=== PATIENT | female | born 1960 | race Caucasian/White ===

== ENCOUNTER 2018-09-30 09:00 | Emergency (ER) | payer OTHER ==
--- OUTSIDE RECORDS SUMMARY | 2018-09-30 09:03 | XMS REPORT | Clinical Summary ---
:1960 Author Organization [facility] Address [address] [place] [address] Care Team Providers Name Role Phone Dominique Negro Primary Care Provider Allergies Active Allergy Reactions Severity Noted Date Comments Glucosamine 06/22/2014 Unknown- discovered on allergy testing Iodine 02/18/2018 Iodine And Iodide Containing 06/22/2014 Unknown- found on allergy Products testing Latex 06/22/2014 Turns lips purple Shellfish Containing 06/22/2014 Unknown- discovered on Products allergy testing Medications Medication Sig Dispensed Refills Start Date End Date Status metFORMIN Take 500 mg by 0 Active (GLUMETZA) 500 MG mouth 2 (two) (MOD) 24 hr tablet times daily with breakfast and dinner. fexofenadine Take 180 mg by 0 Active (PETER) 180 MG mouth daily. tablet cholecalciferol, Take 5,000 0 Active vitamin D3, 5,000 Units by mouth unit Tab daily. esomeprazole Take 40 mg by 0 Active (NEXIUM) 40 MG mouth daily. capsule thyroid, pork, Take 30 mg by 0 Active (ARMOUR THYROID) mouth daily. 30 mg Tab celecoxib Take 100 mg by 0 Active (CELEBREX) 100 MG mouth every 12 capsule (twelve) hours as needed for Pain. ALPRAZolam (XANAX) Take 0.25 mg by 0 Active 0.25 MG tablet mouth every night as needed for Anxiety. azelastine 1 spray by 0 Active (ASTELIN) 137 mcg Nasal route 2 (0.1 %) nasal (two) times spray daily Use in each nostril as directed . rosuvastatin Take 10 mg by 0 Active (CRESTOR) 10 MG mouth daily. tablet losartan (COZAAR) Take 25 mg by 0 Active 25 MG tablet mouth daily. THYROID ORAL Take 0.5 g by 0 09/20/2018 Discontinued mouth daily. Nature thyroid omeprazole Take 20 mg by 0 09/20/2018 Discontinued (PRILOSEC OTC) 20 mouth daily. MG tablet potassium 99 mg Take by mouth 0 09/20/2018 Discontinued Tab daily. sulfamethoxazole-t Take 1 tablet 0 09/20/2018 Discontinued rimethoprim by mouth 2 (BACTRIM DS) (two) times 800-160 mg per daily. tablet promethazine Take 1 tablet 10 tablet 0 06/29/2014 09/20/2018 Discontinued (PHENERGAN) 25 MG (25 mg total) tablet by mouth every 4 (four) hours as needed for Nausea. Active Problems Problem Noted Date Gallbladder disease 06/29/2014 Encounters Date Type Specialty Care Team Description 09/21/2018 Surgery Gastroenterology Hugo Meyers REMOVAL,24HR PH MD Claudio PROBE 09/21/2018 Hospital Encounter Gastroenterology Hugo Meyers MD 09/20/2018 Surgery Gastroenterology Hugo Meyers TEST,MONITORING 24 KMD Nathan HR PH 09/20/2018 Anesthesia Event Gastroenterology Lazaro Barbosa MD 09/20/2018 Hospital Encounter Gastroenterology Hugo Meyers MD 09/02/2018 Hospital Encounter Radiology Virgadamo, Chronic intractable headache, unspecified headache type; MD Devaughn Neck pain 08/26/2018 Hospital Encounter Cardiology Virgadamo, Chronic intractable headache, unspecified headache type; MD Devaughn Neck pain 08/24/2018 Outside Orders Central Scheduling Virgadamo, Chronic intractable headache, unspecified headache type (Primary Dx); MD Devaughn Neck pain after 09/29/2017 Social History Tobacco Use Types Packs/Day Years Used Date Former Smoker 1 3 Comments: quit 1983 Alcohol Use Drinks/Week oz/Week Comments No Sex Assigned at Date Recorded Not on file Job Start Date Occupation Industry Not on file Not on file Not on file Travel History Travel Start Travel End No recent travel history available. 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 Plan of Treatment Not on file Procedures Procedure Name Priority Date/Time Associated Diagnosis Comments MOTILITY 09/20/2018 12:00 PM [employer] WORK[employer] Esophageal dyskinesia Chronic cough Gastroesophageal reflux disease, esophagitis presence not specified Pre-op examination Special Needs (OFF MEDICATION) TEST,MONITORING 24 HR PH 09/20/2018 12:00 PM Esophageal dyskinesia [employer] Chronic cough Gastroesophageal reflux disease, esophagitis presence not specified Pre-op examination Special Needs (OFF MEDICATION) MR SPINE CERVICAL Routine 09/02/2018 1:07 PM Chronic intractable Results for this WITHOUT IV CONTRAST CDT headache, procedure are in unspecified headache the results type section. Neck pain CAROTID DOPPLER Routine 08/26/2018 10:00 AM Chronic intractable Results for this BILATERAL CDT headache, procedure are in unspecified headache the results type section. Neck pain after 09/29/2017 Results MR spine cervical without IV contrast (09/02/2018 1:07 PM CDT) Narrative Performed At FINAL REPORT [employer] [facility] MR cervical spine without contrast INDICATION: Neck pain, headache TECHNIQUE: MRI of the cervical spine utilizing the following sequences: Sagittal T1, T2, STIR; axial T1 and T2 COMPARISON: None available. FINDINGS: There is straightening of the cervical lordosis. Vertebral height and alignment are otherwise maintained. There are mild degenerative endplate changes and C1-2 arthropathy. There is questionable faintly elevated cord signal centered at C5-6, likely of myelopathic etiology. The spinal canal is borderline congenitally narrow. C2-3: Left asymmetric facet arthropathy with mild left foraminal stenosis. No significant canal or right foraminal stenosis. C3-4: Disc bulge, central disc protrusion indenting the ventral cord, and left greater than right facet arthropathy. Mild canal stenosis and minimal left foraminal stenosis. No significant right foraminal stenosis. C4-5: Disc bulge, central disc protrusion indenting the ventral cord, uncovertebral osteophytes, and facet arthropathy. Mild canal stenosis. Mild left greater than right foraminal stenosis. C5-6: Disc bulge, broad based central disc protrusion/extrusion with ventral cord impingement, endplate and uncovertebral osteophytes, and facet arthropathy. Moderate canal stenosis. Moderate to severe bilateral foraminal stenosis. C6-7: Disc bulge, broad based left paracentral disc protrusion, endplate and uncovertebral osteophytes, and left asymmetric facet arthropathy. Mild canal stenosis. Moderate left and mild right foraminal stenosis. C7-T1: No significant canal or foraminal stenosis. A T2 hyperintense 1 cm nodule in the midline nasopharynx likely reflects a Tornwaldt or mucus retention cyst. There is mild chronic sinus mucosal thickening. IMPRESSION: 1. Broad based central disc herniation at C5-6, and smaller disc protrusions at C3-4, C4-5, and C6-7. Additional degenerative changes contribute to spinal canal stenosis, moderate at C5-6 and mild at C3-4, C4-5, and C6-7. 2. Moderate to severe bilateral C5-6 foraminal stenoses, with other lesser foraminal stenoses as discussed. 3. Questionable faintly elevated cord signal at C5-6, probably of myelopathic etiology. Neurologic correlation is requested. Signed: Betsy Taylor MD Report Verified Date/Time:09/02/2018 14:47:15 Reading Location: [facility] Radiology Reading Room Procedure Note Interface, External Ris In - 09/02/2018 2:49 PM CDT FINAL REPORT MR cervical spine without contrast INDICATION: Neck pain, headache TECHNIQUE: MRI of the cervical spine utilizing the following sequences: Sagittal T1, T2, STIR; axial T1 and T2 COMPARISON: None available. FINDINGS: There is straightening of the cervical lordosis. Vertebral height and alignment are otherwise maintained. There are mild degenerative endplate changes and C1-2 arthropathy. There is questionable faintly elevated cord signal centered at C5-6, likely of myelopathic etiology. The spinal canal is borderline congenitally narrow. C2-3: Left asymmetric facet arthropathy with mild left foraminal stenosis. No significant canal or right foraminal stenosis. C3-4: Disc bulge, central disc protrusion indenting the ventral cord, and left greater than right facet arthropathy. Mild canal stenosis and minimal left foraminal stenosis. No significant right foraminal stenosis. C4-5: Disc bulge, central disc protrusion indenting the ventral cord, uncovertebral osteophytes, and facet arthropathy. Mild canal stenosis. Mild left greater than right foraminal stenosis. C5-6: Disc bulge, broad based central disc protrusion/extrusion with ventral cord impingement, endplate and uncovertebral osteophytes, and facet arthropathy. Moderate canal stenosis. Moderate to severe bilateral foraminal stenosis. C6-7: Disc bulge, broad based left paracentral disc protrusion, endplate and uncovertebral osteophytes, and left asymmetric facet arthropathy. Mild canal stenosis. Moderate left and mild right foraminal stenosis. C7-T1: No significant canal or foraminal stenosis. A T2 hyperintense 1 cm nodule in the midline nasopharynx likely reflects a Tornwaldt or mucus retention cyst. There is mild chronic sinus mucosal thickening. IMPRESSION: 1. Broad based central disc herniation at C5-6, and smaller disc protrusions at C3-4, C4-5, and C6-7. Additional degenerative changes contribute to spinal canal stenosis, moderate at C5-6 and mild at C3-4, C4-5, and C6-7. 2. Moderate to severe bilateral C5-6 foraminal stenoses, with other lesser foraminal stenoses as discussed. 3. Questionable faintly elevated cord signal at C5-6, probably of myelopathic etiology. Neurologic correlation is requested. Signed: Besty Taylor MD Report Verified Date/Time: 09/02/2018 14:47:15 Reading Location: [facility] Radiology Reading Room Performing Organization Address City/State/Zipcode Phone Number [employer] RIS Carotid Doppler Bilateral (08/26/2018 10:00 AM CDT) [facility] Impressions Performed At Right Impression [facility] 1. There is <50% diameter reduction (approximately 18% by 2-D measurement) in the internal carotid artery with a peak velocity of 52/18 cm/sec and heterogeneous plaque. 2. There is no stenosis in the external carotid artery. 3. The common carotid artery is patent. 4. The vertebral artery flow is antegrade. 5. The subclavian artery is patent where visualized. Left Impression 1. There is <50% diameter reduction (approximately 21% by 2-D measurement) in the internal carotid artery with a peak velocity of 51/19 cm/sec and heterogeneous plaque. 2. There is no stenosis in the external carotid artery. 3. The common carotid artery is patent. 4. The vertebral artery flow is antegrade. 5. The subclavian artery is patent where visualized. Conclusions Summary Carotid duplex scanning and color flow imaging were performed bilaterally. The arteries were adequately visualized. The bilateral internal carotid arteries had <50% hemodynamically insignificant stenosis (approximately 18% by 2-D measurement on the right, approximately 21% by 2-D measurement on the left) with heterogeneous plaque. The vertebral artery flow was antegrade bilaterally. Signature Velocities are measured in cm/s ; Diameters are measured in cm Carotid Right Measurements + +----+----+-----+ +---- + + !Location !PSV !EDV !Angle!%Stenosis 2D!%Stenosis Doppler!Tortuosity ! + +----+----+-----+ +---- + + !Prox CCA !89.7!21.1!60 !! ! ! + +----+----+-----+ +---- + + !Dist CCA !63.6!18.1!60 !! ! ! + +----+----+-----+ +---- + + !Prox ICA !52.3!18.5!60 !18% !<50% ! ! + +----+----+-----+ +---- + + !Dist ICA !70.4!31.7!60 !! ! ! + +----+----+-----+ +---- + + !Prox ECA !62.9!10.6!60 !! ! ! + +----+----+-----+ +---- + + !Vertebral!36.5!14.1!60 !! ! ! + +----+----+-----+ +---- + + !Prox Subclavian!80.3!!60 !! ! ! + +----+----+-----+ +---- + + - There is antegrade vertebral flow noted on the right side. - Additional Measurements:ICAPSV/CCAPSV 1.11.ICAEDV/CCAEDV 1.5. Carotid Left Measurements + +----+----+-----+ +---- + + !Location !PSV !EDV !Angle!%Stenosis 2D!%Stenosis Doppler!Tortuosity ! + +----+----+-----+ +---- + + !Prox CCA !91.5!29.3!60 !! ! ! + +----+----+-----+ +---- + + !Dist CCA !72.7!22.3!60 !! ! ! + +----+----+-----+ +---- + + !Prox ICA !51.5!19.6!60 !21% !<50% ! ! + +----+----+-----+ +---- + + !Dist ICA !89.7!39.3!60 !! ! ! + +----+----+-----+ +---- + + !Prox ECA !64.8!15.7!60 !! ! ! + +----+----+-----+ +---- + + !Vertebral!39.3!17.3!60 !! ! ! + +----+----+-----+ +---- + + !Prox Subclavian!98.5!!60 !! ! ! + +----+----+-----+ +---- + + - There is antegrade vertebral flow noted on the left side. - Additional Measurements:ICAPSV/CCAPSV 1.23.ICAEDV/CCAEDV 1.34. Narrative Performed At [facility] - Carotid Duplex Study [facility] Demographics Patient NameYOLIS BROWN Date of Study 08/26/2018 MARIA Age 58 Visit [id number] GenderFemale Date of 1960 Number Referring [facility] Number Physician Gasoline Tester Rocio Barrientos InterpretingChavo Mcdonald RN, Jeimycitino COBIAN, RPVI Procedure Type of Study: Cerebral: Carotid, CAROTID DOPPLER, BILATERAL. Indications for Study:Headache and Neck pain . Patient Status:Routine. Study Location:Vascular Lab. Technical Quality:Adequate visualization. Procedure Note Interface, External Ris In - 08/26/2018 3:39 PM CDT [facility] - Carotid Duplex Study Demographics Patient Name YOLIS BROWN Date of Study 08/26/2018 MARIA Age 58 Visit Number [id number] Gender Female Date of 1960 Number Referring [facility] Number Physician Gasoline Tester Rocio Barrientos Interpreting Chavo Mcdonald RN, RVT Physician , RPVI Procedure Type of Study: Cerebral: Carotid, CAROTID DOPPLER, BILATERAL. Indications for Study:Headache and Neck pain . Patient Status:Routine. Study Location:Vascular Lab. Technical Quality:Adequate visualization. Impressions Right Impression 1. There is <50% diameter reduction (approximately 18% by 2-D measurement) in the internal carotid artery with a peak velocity of 52/18 cm/sec and heterogeneous plaque. 2. There is no stenosis in the external carotid artery. 3. The common carotid artery is patent. 4. The vertebral artery flow is antegrade. 5. The subclavian artery is patent where visualized. Left Impression 1. There is <50% diameter reduction (approximately 21% by 2-D measurement) in the internal carotid artery with a peak velocity of 51/19 cm/sec and heterogeneous plaque. 2. There is no stenosis in the external carotid artery. 3. The common carotid artery is patent. 4. The vertebral artery flow is antegrade. 5. The subclavian artery is patent where visualized. Conclusions Summary Carotid duplex scanning and color flow imaging were performed bilaterally. The arteries were adequately visualized. The bilateral internal carotid arteries had <50% hemodynamically insignificant stenosis (approximately 18% by 2-D measurement on the right, approximately 21% by 2-D measurement on the left) with heterogeneous plaque. The vertebral artery flow was antegrade bilaterally. Signature Velocities are measured in cm/s ; Diameters are measured in cm Carotid Right Measurements + +----+----+-----+ + + + !Location !PSV !EDV !Angle!%Stenosis 2D!%Stenosis Doppler!Tortuosity ! + +----+----+-----+ + + + !Prox CCA !89.7!21.1!60 ! ! ! ! + +----+----+-----+ + + + !Dist CCA !63.6!18.1!60 ! ! ! ! + +----+----+-----+ + + + !Prox ICA !52.3!18.5!60 !18% !<50% ! ! + +----+----+-----+ + + + !Dist ICA !70.4!31.7!60 ! ! ! ! + +----+----+-----+ + + + !Prox ECA !62.9!10.6!60 ! ! ! ! + +----+----+-----+ + + + !Vertebral !36.5!14.1!60 ! ! ! ! + +----+----+-----+ + + + !Prox Subclavian!80.3! !60 ! ! ! ! + +----+----+-----+ + + + - There is antegrade vertebral flow noted on the right side. - Additional Measurements:ICAPSV/CCAPSV 1.11.ICAEDV/CCAEDV 1.5. Carotid Left Measurements + +----+----+-----+ + + + !Location !PSV !EDV !Angle!%Stenosis 2D!%Stenosis Doppler!Tortuosity ! + +----+----+-----+ + + + !Prox CCA !91.5!29.3!60 ! ! ! ! + +----+----+-----+ + + + !Dist CCA !72.7!22.3!60 ! ! ! ! + +----+----+-----+ + + + !Prox ICA !51.5!19.6!60 !21% !<50% ! ! + +----+----+-----+ + + + !Dist ICA !89.7!39.3!60 ! ! ! ! + +----+----+-----+ + + + !Prox ECA !64.8!15.7!60 ! ! ! ! + +----+----+-----+ + + + !Vertebral !39.3!17.3!60 ! ! ! ! + +----+----+-----+ + + + !Prox Subclavian!98.5! !60 ! ! ! ! + +----+----+-----+ + + + - There is antegrade vertebral flow noted on the left side. - Additional Measurements:ICAPSV/CCAPSV 1.23.ICAEDV/CCAEDV 1.34. Performing Organization Address City/State/Zipcode Phone Number [facility] after 09/29/2017 Insurance Payer Benefit Plan / Group Subscriber ID Type Phone Address [facility] [place] HMO POS SELECT xxxxxxxxx HMO/POS CARE CHOICE Advance Directives For more information, please contact:[address] [phone] Code Status Date Activated Date Inactivated Comments Full Code 06/29/2014 9:41 AM 06/29/2014 8:07 PM This code status was determined by: Patient
--- OUTSIDE RECORDS SUMMARY | 2018-09-30 09:03 | XMS REPORT | Clinical Summary ---
:1960 Author Organization [facility] Address [address] [place] [address] Care Team Providers Name Role Phone Asked, No Pcp Primary Care Provider Unavailable Allergies Active Allergy Reactions Severity Noted Date Comments Iodine And Iodide Containing 07/17/2016 Unknown- found on allergy Products testing Latex 07/17/2016 Turns lips purple Shellfish Containing 07/17/2016 Unknown- discovered on Products allergy testing Medications Medication Sig Dispensed Refills Start Date End Date Status cholecalciferol, Take 5,000 0 Active vitamin D3, 5,000 Units by unit tablet mouth. fexofenadine Take 180 mg by 0 Active (PETER) 180 MG mouth. tablet metFORMIN (GLUMETZA) Take 500 mg by 0 Active 500 MG (MOD) 24 hr mouth 2 (two) tablet times a day. 2 tablets twice a day. UNABLE TO FIND Biest/prog SR 50/50 1/100 mg 0 Active Takes 1 pill a day ALPRAZolam (XANAX) Take 0.25 mg 0 Active 0.25 MG tablet by mouth nightly as needed for anxiety. esomeprazole Take 40 mg by 0 Active (NexIUM) 40 MG mouth daily capsule before breakfast. thyroid, pork, Take 30 mg by 0 Active (ARMOUR THYROID) 30 mouth daily. mg tablet azelastine (ASTELIN) 1 spray into 0 Active 137 mcg (0.1 %) each nostril 2 nasal spray (two) times a day. Use in each nostril as directed beclomethasone Inhale 1 puff 0 Active (QVAR) 80 2 (two) times mcg/actuation a day. inhaler fluticasone 2 sprays by 0 Active (FLONASE) 50 Each Nare mcg/actuation nasal route daily. spray cefdinir (OMNICEF) Take 300 mg by 0 Active 300 MG capsule mouth 2 (two) times a day. codeine Take by mouth. 0 Active phosphate/guaifenesi n (VIRTUSSIN AC ORAL) THYROID, PORK, ORAL Take 0.5 g by 0 Discontinued mouth. 8 PATADAY 0.2 % drops as needed. 0 12/19/2016 Discontinued 8 Active Problems Problem Noted Date Generalized osteoarthritis 10/09/2016 HLA B27 (HLA B27 positive) 10/09/2016 Encounter for long-term (current) use of non-steroidal anti-inflammatories 07/2016 Last Assessment & Plan: I have explained that this drug belongs to a class of drugs called nonsteroidal anti-inflammatory drugs often abbreviated NSAIDS. These drugs are useful in treating arthritis because they have mild lex nkilling qualities (they are analgesics) and they reduce mild inflammation ( they are anti-inflammatory). All drugs in this family can have all of the same risks, because they all work by the same mecha nism of action. You should never take xzje-kwc-wuhwxan anti-inflammatory drugs (like ibuprofen or naproxen) while taking a prescription strength NSAID. Other pain killers like acetaminophen (Tylenol) or stronger painkillers (tramadol or hydrocodone) when taken in reasonable doses are generally safe when taken with NSAIDs. The same property that allows these drugs to have positive effects can also lead to side effects. Some of these include irritation of the stomach and esophagus (esophagitis, gastritis and even bleeding ulcers that may lead to black or tarry stools), slow blood flow to the kidneys , irritation of the liver, cause the skin to be sensitive to the sun and act as a mild blood thinner. (That's why surgeons always want patients to stop taking these medicines before any surgical procedure.) They can cause fluid retention, hypertension and the FDA claims all of these drugs have an increased risk of stroke and heart attack (including the over the counter medications ibuprofen and naproxen). If you notice any of these symptoms, or are just uncomfortable with the idea of continuing to take the medication, simply stop it. These medications are not narcotic and therefore are not addictive. T hey can be stopped immediately with no risk of withdrawal. They are not steroids of any kind and have almost none of the dangerous side effects associated with those drugs. I recommended that she take meloxicam 15 mg by mouth with a meal. She is to discontinue the ketoprofen. The patient understands these risks and is willing to go forward with the medication. Diabetes Last Assessment & Plan: Ongoing evaluation of this health issue are conducted by her other physicians. Hypothyroid Last Assessment & Plan: Ongoing evaluation of this health issue are conducted by her other physicians. Vitamin D deficiency Last Assessment & Plan: We will continue to check these levels periodically to be certain that her xryh-xnf-gspmvan supplements are sufficient. Encounters Date Type Specialty Care Team Description 04/15/2018 Office Visit Rheumatology Mario Pepper MD HLA B27 (HLA B27 positive) (Primary Dx); Generalized OA after 09/29/2017 Family History Medical History Relation Name Comments Diabetes Brother Pneumonia Father Diabetes Mother Heart failure Mother Diabetes Sister Relation Name Status Comments Brother Alive Father Mother Sister Alive Sister Alive Social History Tobacco Use Types Packs/Day Years Used Date Never Smoker Smokeless Tobacco: Never Used Alcohol Use Drinks/Week oz/Week Comments No Sex Assigned at Date Recorded Not on file Job Start Date Occupation Industry Not on file Not on file Not on file Travel History Travel Start Travel End No recent travel history available. Last Filed Vital Signs Vital Sign Reading Time Taken Blood Pressure 110/73 04/15/2018 9:29 AM CDT Pulse 73 04/15/2018 9:29 AM CDT Temperature 36.7 C (98 F) 04/15/2018 9:29 AM CDT Respiratory Rate 16 04/15/2018 9:29 AM CDT Oxygen Saturation 97% 04/15/2018 9:29 AM CDT Inhaled Oxygen Concentration - - Weight 95.2 kg (209 lb 14.4 oz) 04/15/2018 9:29 AM CDT Height 165.1 cm (5' 5") 04/15/2018 9:29 AM CDT Body Mass Index 34.93 04/15/2018 9:29 AM CDT Plan of Treatment Health Maintenance Due Date Last Done Comments DIABETIC RETINAL EYE EXAM 1960 MMR VACCINES (1 of 1 - Standard 1959 series) DIABETIC FOOT EXAM 1968 URINE MICROALBUMIN 1968 HEPATITIS B VACCINES (1 of 3 - Risk 1977 3-dose series) CERVICAL CANCER SCREENING 1979 BREAST CANCER SCREENING 2008 COLON CANCER SCREENING 2008 SHINGRIX VACCINE (1 of 2) 2008 INFLUENZA VACCINE 06/08/2018 ZOSTER VACCINE 2018 IPV VACCINES Aged Out No longer eligible based on patient's age to complete this topic MENINGOCOCCAL VACCINE Aged Out No longer eligible based on patient's age to complete this topic VARICELLA VACCINES Aged Out No longer eligible based on patient's age to complete this topic Results Not on fileafter 09/29/2017 Insurance Payer Benefit Plan / Group Subscriber ID Type Phone Address [facility] Core Competence CHOICE/CHOICE + xxxxxxxxx HMO/PPO [facility] [employer] CHOICE/CHOICE + xxxxxxxxx HMO/PPO Advance Directives Patient has advance care planning documents on file. For more information, please contact[place] [address]
--- OUTSIDE RECORDS SUMMARY | 2018-09-30 09:03 | XMS REPORT ---
:1960 [facility] Address [address] [place] [address] Care Team Providers Name Role Phone Unavailable Unavailable Unavailable Problems This patient has no known problems. Allergies, Adverse Reactions, Alerts This patient has no known allergies or adverse reactions. Medications This patient has no known medications. Results Test Description Test Time Test Comments Text Results Atomic Results Result Comments MR, SPINE, CERVICAL, 2018-09-02 14:47:00 FINAL REPORT WITHOUT CONTRAST MR cervical spine without contrast INDICATION: Neck [...] Neurologic correlation is requested. Signed: [facility] Verified Date/Time: 09/02/2018 14:47:15 Reading Location: [facility] Radiology Reading Room
--- OUTSIDE RECORDS SUMMARY | 2018-09-30 09:03 | XMS REPORT | Summary of Care ---
:1960 Author Encounter Joser_[id number](NAHUN) [id number] Date(s): 05/18/14 - 05/18/14 [facility] [address] Discharge Disposition: Home Physician Attending: Lesly Abel MD Physician_Referring: Lesly Abel MD Reason for Visit 789.06 Problem List No data available for this section Allergies, Adverse Reactions, Alerts No data available for this section Medications Kinevac + Sodium Chloride 0.9% IV 50 mL 1.9 microgram, Route: IV, ONCE, Start date: 05/18/14 9:30:00, Stop date: 9:30:00 Notes: (Same as: Kinevac) Start Date: 05/18/14 Stop Date: 05/18/14 Status: Ordered Medications Administered During Your Visit No data available for this section Immunizations No data available for this section
--- OUTSIDE RECORDS SUMMARY | 2018-09-30 09:03 | XMS REPORT | Continuity of Care Document ---
:1960 Author Organization Interface Problems Problem Status Onset Classification Date Comments Source Date Reported R10.13 - Active [facility] EP[facility] 8 [place] PAIN 789.06 Active [place] 4 ABDMNAL PAIN Active [facility] Medications Medication Details Route Status Patient Ordering Order Source Instructions Provider Date Kinevac + 1.9 Inactive Sodium microgram, 014 [place] Chloride 0.9% Route: IV, IV 50 mL ONCE, Start date: 05/18/14 9:30:00, Stop date: 05/18/14 9:30:00Not es: (Same as: Kinevac) Allergies, Adverse Reactions, Alerts Substance Category Reaction Severity Reaction Status Date Comments Source type Reported Immunizations Immunization Date Given Site Status Last Updated Comments Source Results Order Name Results Value Reference Date Interpretation Comments Source Range Retroperit Retroperiton Clinical Indication: N28.1 Cyst of kidney, acquired - N28.1 Cyst of kidney, acquired. 07/15 - OPID rodrí[facility] eal Complete /2017 - The Complete US Comparison: CT abdomen 06/24/2018 [place] US Read by: Idalia El MD Dictated Date/time: 07/15/18 13:43 TECHNIQUE: Electronically Signed by: Idalia El MD 07/15/18 13:45 FINAL REPORT Multiple longitudinal and transverse real time sonographic images of the kidneys and urinary bladder are obtained. FINDINGS: KIDNEY: The right kidney measures 12.2 x 5.6 x 4.2 cm. The left kidney measures 11 x 5.1 x 4.9 cm. The kidneys are normal in size, shape, contour, and position. The cortices are normal in thickness. There is no hydronephrosis. No shadowing calculus. There is a 2.2 x 2.1 x 1.7 cm cyst at the lower pole the right kidney with thin internal septation. BLADDER: Scanning through the pelvis reveals the bladder to be partially distended with anechoic urine. AORTA, IVC AND COMMON ILIAC ARTERIES: The visualized portions appear unremarkable. OTHER: No ascites noted. The liver is echogenic. IMPRESSION: 1. Bosniak 2 right renal cyst 2. Probable hepatic steatosis SL: ECROBERT Abdomen w Abdomen w IV Clinical Indication: - r10.13 persistent epigastric pain and GERD. 06/24 - [facility] IV contrast CT /2017 - The contrast Comparison: Comparison is made to abdomen/pelvis CT examination dated 07/07/2013. [place] CT Read by: Tommie Callahan MD Dictated Date/time: 06/24/18 11:19 TECHNIQUE: CT examination of the abdomen was performed with intravenous contrast and axial images were obtained. Coronal and sagittal reformats were also obtained and saved to PACS. The patient was tran Electronically Signed by: Tommie Callahan MD 06/24/18 11:29 edicated prior to IV iodinated contrast administration. No immediate complication following contrast injection. CT imaging was performed with exposure control parameters to reduce radiation dose. FINAL REPORT IV CONTRAST: 100 mL of Omnipaque GI CONTRAST: Oral contrast was administered. DLP: 704.24 mGy-cm FINDINGS: The visualized portions of the bilateral lung bases are grossly clear. No free intraperitoneal air. The spleen, pancreas, and adrenal glands are within normal limits for appearance. Surgical clips are in place at the gallbladder fossa and the gallbladder surgically absent. No significant inflammatory change or fluid collection identified at the gallbladder fossa. The liver appears normal in size and contour. There is mildly decreased hepatic attenuation. The kidneys enhance symmetrically. Lobulated 2.2 cm low-attenuation lesion present at the inferior pole of the right kidney, suggesting a cyst. No hydronephrosis or proximal hydroureter. No dilated loops of bowel. No evidence of bowel obstruction. Mild colonic stool burden. Contrast material is identified within the bowel from the level of the stomach to the mid small bowel. There is sc attered distal colonic diverticulosis without findings to suggest acute diverticulitis. The abdominal aorta is normal in course and caliber without focal aneurysmal dilation. Minimal atherosclerotic calcifications present at the abdominal aorta. Minimal grade 1 anterolisthesis of L3 on L4 secondary to degenerative facet arthropathy at this site. No acute wedge compression of 40 present at the lumbar spine. IMPRESSION: 1. No acute inflammatory process identified within the abdomen or pelvis. There is a mild colonic stool burden, predominantly at the proximal colon. No bowel obstruction demonstrated. 2. Mild fatty infiltration of the liver. 3. Scattered distal colonic diverticulosis without findings to suggest acute diverticulitis. 4. Mild interval enlargement of the lobulated 2.2 cm low-attenuation lesion at the inferior pole of the right kidney. This is most consistent with a cyst, however recommend renal ultrasound examination on a nonemergent basis for more complete evaluation. SL: [id number] Gallbladde Gallbladder NAME: YOLIS BROWN 05/18 - r scan scan [facility] meds CT : 1960 SEX: F [facility] Ordering Physician: Lesly Abel Read by: Erlin Vargas MD Dictated Date/time: 05/18/14 13:07 Gallbladder scan [facility] with meds (NM) : May 18, 2014 08:15:00 AM. Electronically Signed by: Erlin Vargas MD 05/18/14 13 :09 FINAL REPORT CLINICAL INDICATION: epigastric pain / See Clinic Indication Comparison Examination: March 16, 2014 ultrasound. FINDINGS: Hepatobiliary scan is performed using 5 mCi of Tc-99m Choletec and 1900 nanograms of Cholecystokinin. There is prompt hepatic uptake and excretion with progression of the radiotracer through a non dilated biliary tree and into small bowel. Gallbladder filling is first noted at 12 minutes past radiotracer injection. After Cholecystokinin infusion the gallbladder ejection fraction is noted to be 34%. (GB ejection fraction - normal greater than 50%, indeterminate 35-50%, abnormal <35%) Technologist Comment: Patient reported mild discomfort during Kinevac effusion IMPRESSION: 1. Gallbladder visualized excluding cystic duct obstruction. 2. Ejection fraction abnormal 34% demonstrated SL: 23 Vital Signs Vital Sign Value Date Comments Source Encounters Location Location Encounter Encounter Reason Attending ADM DC Status Source Details Type Number For Provider Date Date Visit [facility] [id number] Lesly 05/18 05/19 VIV Abel /2013 [facility] Procedures Procedure Code Date Perfomer Comments Source
[2018-09-30 10:27] LABS: Absolute Lymphocytes (CBC) 1.8 K/uL (0.7-4.9); Absolute Monocytes 0.5 K/uL (0.1-1.3); Absolute Neutrophil 4.7 K/uL (1.8-8.0); Basophils % 0.8 % (0-1.3); Eosinophils % 2.2 % (0-4.4); Hematocrit 43.9 % (36.0-45.0); Lymphocytes % 25.3 % (15.3-44.8); MCH 28.9 pg (27.0-35.0); MCV 85.7 fL (80-100); MPV 8.8 fL (7.6-11.3); Monocytes % 7.1 % (3.3-12.3); RBC Red Blood Cell Count 5.12 M/uL (3.86-4.86)
[2018-09-30] MEDS ORDERED: GLUCAGON 1 MG/VIAL ONE (10:44)
[2018-09-30] MEDS ORDERED: NA CHLORIDE 0.9% 1,000 ML ONE (10:45)
[2018-09-30] MEDS ORDERED: PANTOPRAZOLE 40 MG INJ ONE (10:45)
[2018-09-30 10:47] LABS: Bilirubin Total 0.2 mg/dL (0.2-1.0); Potassium 4.4 mmol/L (3.5-5.1); Protein, Total 7.6 g/dL (6.4-8.2)
--- NOTE | 2018-09-30 11:21 | RAD REPORT ---
EXAM DESCRIPTION: RAD - Chest Single View - 09/30/2018 10:52 am CLINICAL HISTORY: CHEST PAIN Chest pain. COMPARISON: No comparisons FINDINGS: Portable technique limits examination quality. The lungs are grossly clear. The heart is normal in size. No displaced fractures. IMPRESSION: No acute intrathoracic process suspected.
--- NOTE | 2018-09-30 11:24 | EDPHYS ---
Physician Documentation [facility] Name: Mitali Gonzalez Age: 58 yrs Sex: Female : 1960 Arrival Date: 09/30/2018 Time: 09:05 Bed 5 Private MD: out of town, doctor ED Physician Zeferino Trujillo HPI: 09/30 09:51 This 58 yrs old Female presents to ER via Ambulatory with complaints of perry Vomiting. 09:51 The patient presents to the emergency department with nausea, vomiting. Onset: The perry symptoms/episode began/occurred 2 day(s) ago. Possible causes: fb in esophogus. The symptoms are aggravated by nothing. The symptoms are alleviated by nothing. Associated signs and symptoms: The patient has no apparent associated signs or symptoms. Severity of symptoms: At their worst the symptoms were mild in the emergency department the symptoms are unchanged. The patient has not experienced similar symptoms in the past. Historical: - Allergies: 09:13 Iodine; aa5 - PMHx: 09:13 Hypertension; Thyroid problem; Diabetes - NIDDM; Migraines; Acid Reflux; aa5 - PSHx: 09:13 Cholecystectomy; Hysterectomy; aa5 - Immunization history:: Flu vaccine is up to date. - Social history:: Smoking status: Patient/guardian denies using tobacco. - Ebola Screening: : No symptoms or risks identified at this time. ROS: 09:53 Constitutional: Negative for fever, chills, and weight loss, Eyes: Negative for injury, perry pain, redness, and discharge, ENT: Negative for injury, pain, and discharge, Neck: Negative for injury, pain, and swelling, Respiratory: Negative for shortness of breath, cough, wheezing, and pleuritic chest pain, Back: Negative for injury and pain, : Negative for injury, bleeding, discharge, and swelling, MS/Extremity: Negative for injury and deformity, Skin: Negative for injury, rash, and discoloration, Neuro: Negative for headache, weakness, numbness, tingling, and seizure, Psych: Negative for depression, anxiety, suicide ideation, homicidal ideation, and hallucinations, Allergy/Immunology: Negative for hives, rash, and allergies, Endocrine: Negative for neck swelling, polydipsia, polyuria, polyphagia, and marked weight changes, Hematologic/Lymphatic: Negative for swollen nodes, abnormal bleeding, and unusual bruising. 09:53 Cardiovascular: Positive for chest pain. 09:53 Abdomen/GI: Positive for abdominal pain, nausea and vomiting. Exam: 09:53 Constitutional: This is a well developed, well nourished patient who is awake, alert, perry and in no acute distress. Head/Face: Normocephalic, atraumatic. Eyes: Pupils equal round and reactive to light, extra-ocular motions intact. Lids and lashes normal. Conjunctiva and sclera are non-icteric and not injected. Cornea within normal limits. Periorbital areas with no swelling, redness, or edema. ENT: Nares patent. No nasal discharge, no septal abnormalities noted. Tympanic membranes are normal and external auditory canals are clear. Oropharynx with no redness, swelling, or masses, exudates, or evidence of obstruction, uvula midline. Mucous membranes moist. Neck: Trachea midline, no thyromegaly or masses palpated, and no cervical lymphadenopathy. Supple, full range of motion without nuchal rigidity, or vertebral point tenderness. No Meningismus. Chest/axilla: Normal chest wall appearance and motion. Nontender with no deformity. No lesions are appreciated. Cardiovascular: Regular rate and rhythm with a normal S1 and S2. No gallops, murmurs, or rubs. Normal PMI, no JVD. No pulse deficits. Respiratory: Lungs have equal breath sounds bilaterally, clear to auscultation and percussion. No rales, rhonchi or wheezes noted. No increased work of breathing, no retractions or nasal flaring. Back: No spinal tenderness. No costovertebral tenderness. Full range of motion. Female : Normal external genitalia. Skin: Warm, dry with normal turgor. Normal color with no rashes, no lesions, and no evidence of cellulitis. MS/ Extremity: Pulses equal, no cyanosis. Neurovascular intact. Full, normal range of motion. Neuro: Awake and alert, GCS 15, oriented to person, place, time, and situation. Cranial nerves II-XII grossly intact. Motor strength 5/5 in all extremities. Sensory grossly intact. Cerebellar exam normal. Normal gait. Psych: Awake, alert, with orientation to person, place and time. Behavior, mood, and affect are within normal limits. 09:53 Abdomen/GI: Inspection: abdomen appears normal, Bowel sounds: normal, Palpation: abdomen is soft and non-tender, in all quadrants. Vital Signs: 09:13 BP 148 / 93; Pulse 91; Resp 16; Temp 99.3(TE); Pulse Ox 96% on R/A; Weight 95.25 kg aa5 (R); Height 5 ft. 4 in. (162.56 cm) (R); Pain 7/10; 10:30 BP 150 / 90; Pulse 72; Resp 16; Pulse Ox 98% ; bp 11:41 BP 154 / 80; Pulse 64; Resp 16; Pulse Ox 99% ; bp 09:13 Body Mass Index 36.05 (95.25 kg, 162.56 cm) aa5 MDM: 09:13 Patient medically screened. [facility] 09:55 Data reviewed: vital signs, nurses notes, lab test result(s), EKG, radiologic studies, [facility] plain films. 09/30 09:51 Order name: CBC with Diff; Complete Time: 11:18 [facility] 09/30 09:51 Order name: Comprehensive Metabolic Panel; Complete Time: 11:18 [facility] 09/30 09:51 Order name: Lipase; Complete Time: 11:18 [facility] 09/30 09:56 Order name: Troponin (emerg Dept Use Only); Complete Time: 11:18 [facility] 09/30 10:35 Order name: Urine Dipstick--Ancillary (enter results) 09/30 10:36 Order name: Urine Dipstick-Ancillary EDOH 09/30 09:51 Order name: Chest Single View XRAY [facility] 09/30 09:51 Order name: EKG; Complete Time: 09:52 [facility] 09/30 09:51 Order name: EKG - Nurse/Tech; Complete Time: 10:28 [facility] 09/30 09:51 Order name: Urine Dipstick-Ancillary (obtain specimen); Complete Time: 10:47 [facility] Administered Medications: 10:30 Drug: NS 0.9% 1000 ml Route: IV; Rate: 1 bolus; Site: right antecubital; bp 11:39 Follow up: IV Status: Completed infusion; IV Intake: 1000ml bp 10:30 Drug: ProTONIX 40 mg Route: IVP; Site: right antecubital; bp 11:39 Follow up: Response: Marked relief of symptoms bp 10:30 Drug: Glucagon 1 mg Route: IVP; Site: right antecubital; bp 11:39 Follow up: Response: Marked relief of symptoms bp Disposition: 09/30/18 11:23 Discharged to Home. Impression: Esophageal obstruction - food bolus, dysphagia, Dysphagia. - Condition is Stable. - Discharge Instructions: Dysphagia, Esophageal Stricture. - Medication Reconciliation Form, Thank You Letter, Antibiotic Education, Prescription Opioid Use form. - Follow up: Private Physician; When: 2 - 3 days; Reason: Recheck today's complaints, Continuance of care, Re-evaluation by your physician. Follow up: Shoaib Dueñas MD; When: 2 - 3 days; Reason: Recheck today's complaints, Re-evaluation by your physician. - Problem is new. - Symptoms have improved. Signatures: Dispatcher [employer] EDMS Zeferino Trujillo MD MD cha Calderon, Audri, RN RN aa5 Hemanth Cassidy RN RN bp Corrections: (The following items were deleted from the chart) 11:24 11:23 09/30/2018 11:23 Discharged to Home. Impression: Esophageal obstruction - food perry bolus, dysphagia; Dysphagia. Condition is Stable. Forms are Medication Reconciliation Form, Thank You Letter, Antibiotic Education, Prescription Opioid Use. Follow up: Private Physician; When: 2 - 3 days; Reason: Recheck today's complaints, Continuance of care, Re-evaluation by your physician. Problem is new. Symptoms have improved. [facility] 11:41 11:24 09/30/2018 11:23 Discharged to Home. Impression: Esophageal obstruction - food bp bolus, dysphagia; Dysphagia. Condition is Stable. Discharge Instructions: Dysphagia, Esophageal Stricture. Forms are Medication Reconciliation Form, Thank You Letter, Antibiotic Education, Prescription Opioid Use. Follow up: Private Physician; When: 2 - 3 days; Reason: Recheck today's complaints, Continuance of care, Re-evaluation by your physician. Follow up: Shoaib Dueñas; When: 2 - 3 days; Reason: Recheck today's complaints, Re-evaluation by your physician. Problem is new. Symptoms have improved. perry
--- NOTE | 2018-09-30 11:24 | ER ---
Nurse's Notes [facility] Name: Mitali Gonzalez Age: 58 yrs Sex: Female : 1960 Arrival Date: 09/30/2018 Time: 09:05 Bed 5 Private MD: out of town, doctor Diagnosis: Esophageal obstruction-food bolus, dysphagia;Dysphagia Presentation: 09/30 09:09 Presenting complaint: Patient states: "I took my pills about an hour ago and I keep aa5 throwing up and it feels like they are not going down to my stomach". Pt states "I also started having heartburn". Transition of care: patient was not received from another setting of care. Onset of symptoms was September 30, 2018 at 08:00. Risk Assessment: Do you want to hurt yourself or someone else? Patient reports no desire to harm self or others. Initial Sepsis Screen: Does the patient meet any 2 criteria? No. Patient's initial sepsis screen is negative. Does the patient have a suspected source of infection? No. Patient's initial sepsis screen is negative. Care prior to arrival: None. 09:09 Method Of Arrival: Ambulatory aa5 09:09 Acuity: KIMO 3 aa5 Historical: - Allergies: 09:13 Iodine; aa5 - PMHx: 09:13 Hypertension; Thyroid problem; Diabetes - NIDDM; Migraines; Acid Reflux; aa5 - PSHx: 09:13 Cholecystectomy; Hysterectomy; aa5 - Immunization history:: Flu vaccine is up to date. - Social history:: Smoking status: Patient/guardian denies using tobacco. - Ebola Screening: : No symptoms or risks identified at this time. Screenin:32 Abuse screen: Denies threats or abuse. Denies injuries from another. Nutritional bp screening: No deficits noted. Tuberculosis screening: No symptoms or risk factors identified. Fall Risk None identified. Assessment: 09:15 General: Appears in no apparent distress. uncomfortable, Behavior is cooperative, bp appropriate for age, anxious. Pain: Complains of pain in abdomen. Neuro: Level of Consciousness is awake, alert, obeys commands, Oriented to person, place, time, situation, Appropriate for age. Cardiovascular: Rhythm is sinus rhythm. Respiratory: Airway is patent Respiratory effort is even, unlabored, Respiratory pattern is regular, symmetrical. GI: Abdomen is obese, Abd is soft X 4 quads. : No signs and/or symptoms were reported regarding the genitourinary system. EENT: No deficits noted. Derm: No deficits noted. Musculoskeletal: Circulation, motion, and sensation intact. Range of motion: intact in all extremities. 10:52 Reassessment: IVF INFUSING, RESULTS PENDING. bp 11:39 Reassessment: PT D/C HOME AMBULATORY WITH FAMILY, DX WITH ESOPHAGEAL STRICTURE. bp Vital Signs: 09:13 BP 148 / 93; Pulse 91; Resp 16; Temp 99.3(TE); Pulse Ox 96% on R/A; Weight 95.25 kg aa5 (R); Height 5 ft. 4 in. (162.56 cm) (R); Pain 7/10; 10:30 BP 150 / 90; Pulse 72; Resp 16; Pulse Ox 98% ; bp 11:41 BP 154 / 80; Pulse 64; Resp 16; Pulse Ox 99% ; bp 09:13 Body Mass Index 36.05 (95.25 kg, 162.56 cm) aa5 ED Course: 09:05 Patient arrived in ED. mr 09:05 out of town, doctor is Private Physician. mr 09:10 Triage completed. aa5 09:11 Hemanth Cassidy, RN is Primary Nurse. bp 09:11 Arm band placed on Patient placed in an exam room, on a stretcher. aa5 09:13 Zeferino Trujillo MD is Attending Physician. perry 10:21 Inserted saline lock: 20 gauge in right antecubital area, using aseptic technique. aj Blood collected. 10:32 Patient has correct armband on for positive identification. Bed in low position. Call bp light in reach. Side rails up X2. Adult w/ patient. 10:45 EKG done, by ED staff, reviewed by Zeferino Trujillo MD. jb1 10:51 X-ray completed. Portable x-ray completed in exam room. Patient tolerated procedure ls3 well. 10:53 Chest Single View XRAY In Process Unspecified. EDMS 11:24 Shoaib Dueñas MD is Referral Physician. perry 11:40 No provider procedures requiring assistance completed. IV discontinued, intact, bp bleeding controlled, No redness/swelling at site. Pressure dressing applied. Administered Medications: 10:30 Drug: NS 0.9% 1000 ml Route: IV; Rate: 1 bolus; Site: right antecubital; bp 11:39 Follow up: IV Status: Completed infusion; IV Intake: 1000ml bp 10:30 Drug: ProTONIX 40 mg Route: IVP; Site: right antecubital; bp 11:39 Follow up: Response: Marked relief of symptoms bp 10:30 Drug: Glucagon 1 mg Route: IVP; Site: right antecubital; bp 11:39 Follow up: Response: Marked relief of symptoms bp Intake: 11:39 IV: 1000ml; Total: 1000ml. bp Outcome: 11:23 Discharge ordered by . perry 11:40 Discharged to home ambulatory, with family. bp 11:40 Condition: stable 11:40 Discharge instructions given to patient, Instructed on discharge instructions, follow up and referral plans. Demonstrated understanding of instructions, follow-up care. 11:41 Patient left the ED. bp Signatures: Dispatcher [employer] EDRoberto Burton jb1 Chelsea Hamilton, Zeferino García RN, MD MD cha Rivera, Mary mr Calderon, Audri RN RN aa5 Hemanth Cassidy RN RN Reymundo Frederick ls3
[2018-09-30 12:28] LABS: Urine Blood NEGATIVE (NEG); Urine Glucose NEGATIVE (NEG); Urine Protein NEGATIVE (NEG); Urine Specific Gravity 1.005 (1.005-1.030); Urine pH 5.5 (5.0-7.0)
--- NOTE | 2018-10-01 07:04 | EKG ---
Test Date: 2018-09-30 Test Time: 10:16:59 Child Care Lead Teacher: JUNE MEASUREMENT RESULTS: Intervals: Rate: 70 CO: 204 QRSD: 82 QT: 400 QTc: 432 [place]: P: 45 CO: 204 QRS: -4 T: 33 INTERPRETIVE STATEMENTS: Normal sinus rhythm Inferior infarct, age undetermined Possible Anterior infarct, age undetermined Abnormal ECG No previous ECG available for comparison Electronically Signed On 10-01-18 07:03:28 HAND TENNIS BALL COVER[employer] by Erlin Danielson
== END 2018-09-30 11:41 | disposition home or self-care (01) ==
LOC: ER 09:00
DX: K22.2 Esophageal obstruction (principal); I10 Essential (primary) hypertension; Z91.048 Other nonmedicinal substance allergy status
CPT/HCPCS: 36415; 71045; 80053; 81003; 83690; 84484; 85025; 93005; 96361; 96374; 96375; 99284; C9113; J1610; J7030